=== PATIENT | male | born 2000 | race Caucasian/White ===

== ENCOUNTER 2023-08-24 08:50 | Outpatient (CLI) | payer BC, SELFPAY ==
--- NOTE | 2023-09-12 14:30 | WPDHOMESLEEP ---
Sleep Study - Home Unattended Date of Study: 08/24/23 Ordering Provider: Davidson Schulte MD Interpreting Provider: Carol Villalobos, DO Home Sleep Study Type: Watch PAT Height: 1.96 m Weight: 131.542 kg Body Mass Index: 34.4 Neck Circumference (inches): 18 [place]: 2 Reason for Sleep Study Witnessed apneas Sleep History The patient is a 23-year-old male with seasonal allergies and obesity that had a sleep study ordered by his primary care physician for evaluation of sleep apnea. 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 He occasionally awakens from sleep short of breath. He denies awakening at night with heartburn, belching or cough. He constantly snores loudly enough that others complain. He frequently has trouble sleeping when he has a cold. He frequently wakes up gasping for air throughout the night. He frequently has breathing problems at night observed by himself or others. He constantly sweats excessively at night. He denies having heart palpitations or irregular heartbeats during the night. He denies falling asleep during the day and while driving. He denies sleep paralysis and cataplexy. He rarely has trouble at school or work due to sleepiness. He frequently experiences vivid dreamlike scenes upon awakening or falling asleep. He denies feeling afraid of going to sleep. He occasionally has nightmares. He rarely remembers his dreams. He constantly has thoughts racing through his mind. He frequently feels sad, depressed and anxious. He constantly has muscular tension. He denies noticing parts of his body jerk. He denies kicking during the night. He denies having crawling and aching feelings in his legs and denies having leg pain during the night. He occasionally grinds his teeth during sleep and occasionally awakens with morning jaw pain. He is rarely bothered by pain during the day but never awakened by pain during the night. He constantly wakes up feeling stiff in the morning. He constantly wakes up with sore or achy muscles. He rarely wakes up with pain in the neck, spine or other joints. He goes to bed at midnight on both weekdays and weekends. It takes him 30-45 minutes to fall asleep. He wakes up 2-3 times throughout the night for unknown reasons but is able to fall back asleep within a few minutes. He wakes up at 9:00 a.m. on both weekdays and weekends. He typically gets 4-6 hours of sleep per night. He will stay in bed for 1 hour after waking up in the morning. He currently lives with his . He denies consuming any caffeinated beverages within 2 hours of bedtime. He denies engaging in physical exercise before bedtime. He will watch television before falling asleep. He denies taking naps in the afternoon or the evening. He consumes 1-2 caffeinated beverages per day. He denies tobacco, alcohol and recreational drug use. [facility] Past Medical History Medical History BMI 36.0-36.9,adult Dermographic urticaria Encounter for wellness examination in adult Obesity (BMI 30-39.9) Witnessed episode of apnea Surgical History Surgical History History of lumbar surgery (~2019) Family History Family History Grandparent Breast cancer Depression Social History Social History Smoking status: Never smoker Alcohol intake: current Alcohol use details: socially Substance use: never Substance use type: does not use Current Housing: Decline to Answer Concerned About Future Housing: Decline to Answer Difficulty Paying Gas/Electric Bills: Decline to Answer Difficulty Paying for Meds: Decline to Answer Currently Unemployed: Decline to Answer Education: Decline to Answer Difficulty w/ Childcare or Family Care: Decline to Answer Medications Home Medicatio
[2023-09-12 14:43] VITALS: BMI 34.4
== END 2023-08-27 10:49 | disposition home or self-care (01) ==
PROVIDERS: PCP Family Medicine; Visit Provider Family Medicine
DX: G47.9 Sleep disorder, unspecified (principal); G47.10 Hypersomnia, unspecified
CPT/HCPCS: 95800

== ENCOUNTER 2023-10-30 09:48 | Outpatient (CLI) | payer OTHER, BC, SELFPAY ==
--- NOTE | 2023-11-19 13:36 | WPDSLEEPSTUD ---
Sleep Study Date of Study: 10/30/23 Ordering Provider: JOHNIE العلي Interpreting Physician: Carol Villalobos DO Sleep Study Type: Polysomnogram Height: 1.96 m Weight: 135.171 kg Body Mass Index: 35.3 Neck Circumference (inches): 17.75 [place]: 2 Reason for Sleep Study Snoring, witnessed apneas, daytime hypersomnia He had a WatchPAT home sleep study on 08/24/2023 that showed an overall AHI of 1.7 with desaturation down to 83%. Sleep History The patient is a 23-year-old male with seasonal allergies and obesity that had a sleep study ordered by his primary care physician for evaluation of sleep apnea.? 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 He occasionally awakens from sleep short of breath.? He denies awakening at night with heartburn, belching or cough.? He constantly snores loudly enough that others complain.? He frequently has trouble sleeping when he has a cold.? He frequently wakes up gasping for air throughout the night.? He frequently has breathing problems at night observed by himself or others.? He constantly sweats excessively at night.? He denies having heart palpitations or irregular heartbeats during the night.? He denies falling asleep during the day and while driving.? He denies sleep paralysis and cataplexy.? He rarely has trouble at school or work due to sleepiness.? He frequently experiences vivid dreamlike scenes upon awakening or falling asleep.? He denies feeling afraid of going to sleep.? He occasionally has nightmares.? He rarely remembers his dreams.??He constantly has thoughts racing through his mind.? He frequently feels sad, depressed and anxious.??He constantly has muscular tension.? He denies noticing parts of his body jerk.? He denies kicking during the night.? He denies having crawling and aching feelings in his legs and denies having leg pain during the night.? He occasionally grinds his teeth during sleep and occasionally awakens with morning jaw pain.? He is rarely bothered by pain during the day but never awakened by pain during the night.? He constantly wakes up feeling stiff in the morning.? He constantly wakes up with sore or achy muscles.? He rarely wakes up with pain in the neck, spine or other joints.? He goes to bed at midnight on both weekdays and weekends.? It takes him 30-45 minutes to fall asleep.? He wakes up 2-3 times throughout the night for unknown reasons but is able to fall back asleep within a few minutes.? He wakes up at 9:00 a.m. on both weekdays and weekends.? He typically gets 4-6 hours of sleep per night.? He will stay in bed for 1 hour after waking up in the morning.? He currently lives with his .? He denies consuming any caffeinated beverages within 2 hours of bedtime.? He denies engaging in physical exercise before bedtime.? He will watch television before falling asleep.? He denies taking naps in the afternoon or the evening.? He consumes 1-2 caffeinated beverages per day.? He denies tobacco, alcohol and recreational drug use. [facility] Past Medical History Medical History BMI 36.0-36.9,adult Depression Dermographic urticaria Elevated liver enzymes (10/11/23) AST normal at 40 with ALT elevated at 60 on 10/11/2023. Encounter for wellness examination in adult Mixed hyperlipidemia (10/11/23) total cholesterol 190, triglycerides 255, HDL 37, LDL 117 with ratio 5.1 on 10/11/2023. Obesity (BMI 30-39.9) TSH normal at 2.74 with glucose 92 and hemoglobin A1c 5.0 on 10/11/2023. Witnessed episode of apnea Home sleep study on 08/24/2023 was not diagnostic for sleep apnea. He had significant oxygen desaturation. He needs in lab split night study. Referral to [facility]. Surgical History Surgical History History of lumbar surgery (~2019) Family History Family History Grandparent Breast cancer Depression
[2023-11-19 13:37] VITALS: BMI 35.3
== END 2023-10-31 06:02 | disposition home or self-care (01) ==
LOC: ANHCSM 09:50
PROVIDERS: PCP Family Medicine; Visit Provider Physician Assistant
DX: R06.83 Snoring (principal); G47.61 Periodic limb movement disorder; G47.10 Hypersomnia, unspecified
CPT/HCPCS: 95810